=== PATIENT | male | born 1995 | race Caucasian/White ===

== ENCOUNTER 2018-02-06 20:15 | Emergency (ER) | payer OTHER ==
[~2018-02-06] VITALS: Ht 175.3 cm; Wt 88.5 kg
--- NOTE | 2018-02-06 20:57 | ED EENT ---
History of Present Illness General Chief Complaint: Ear Problems Stated Complaint: R EAR PAIN/SWELLING Source: patient Exam Limitations: no limitations History of Present Illness Date Seen by Provider: Feb 06, 2018 Time Seen by Provider: 20:53 Initial Comments Patient is a 22-year-old male who presents to the emergency room with complaints of right ear pain. He reports tonight while at [employer] his ear was swiped another player. He denies an actual blow to his head but is concerned with the swelling of the right ear. There is minimal swelling noted. Timing/Duration: abrupt Prearrival Treatment: no prearrival treatment Associated Symptoms: denies symptoms Allergies and Home Medications Patient Home Medication List Home Medication List Reviewed: Yes Review of Systems Constitutional: see HPI; No chills, No fever Ears: See HPI, Pain (pain to right outter ear. ) All Other Systems Reviewed Negative Unless Noted: Yes Past Xamdihj-Dvmfgd-Vgwdcy Hx Past Med/Social Hx: Reviewed Nursing Past Med/Soc Hx Patient Social History Alcohol Use: Denies Use Recreational Drug Use: No Smoking Status: Never a Smoker Recent Foreign Travel: No Contact w/Someone Who Travel: No Immunizations Up To Date Tetanus Booster (TDap): Unknown PED Vaccines UTD: Yes Family Medical History Reviewed Nursing Family Hx Physical Exam Vital Signs Vital Signs - First Documented 02/06/18 20:32 Temp 98.0 Pulse 80 Resp 20 B/P (MAP) 120/70 (87) Pulse Ox 99 O2 Delivery Room Air Height, Weight, BMI Height: '" Weight: lbs. oz. kg; BMI Method: General Appearance: WD/WN, no apparent distress Eyes: bilateral eye normal inspection, bilateral eye PERRL, bilateral eye EOMI Ears: right ear swelling (minimal swelling to outter ear no ecchymosis noted); bilateral ear canal normal, bilateral ear TM normal Nose: normal inspection Neck: non-tender, full range of motion, supple, normal inspection Cardiovascular: regular rate, rhythm, no edema, no gallop, no JVD, no murmur Respiratory: chest non-tender, lungs clear, normal breath sounds, no respiratory distress, no accessory muscle use Skin: normal color, warm/dry, other Progress/Results/Core Measures Progress Progress Note : Progress Note I have seen and evaluated the patient. He agrees with plan of care, plans for discharge, and return precautions. Departure Impression Primary Impression: Contusion of right ear Disposition: HOME, SELF-CARE Condition: Stable/Unchanged Departure-Patient Inst. Decision time for Depature: 20:55 Referrals: MOOK YANEZ MD Patient Instructions: Contusion (DC) Add. Discharge Instructions: You may use ibuprofen and Tylenol as needed for pain. Use ice to the sore area at 20 minute intervals. Follow-up with [facility] or your primary care provider back in [place] within 1 week for recheck. Return back to the emergency room for any worsening pain, swelling, or any other concerns as needed. All discharge instructions reviewed with patient and/or family. Voiced understanding. TORIBIO ARMAS Feb 06, 2018 20:57
[2018-02-06 21:00] VITALS: BP 120/70
== END 2018-02-06 21:00 | disposition home or self-care (01) ==
LOC: ER 20:16
DX: S00.431A Contusion of right ear, initial encounter (principal); W51.XXXA Accidental striking against or bumped into by another person, initial encounter; Y93.63 Activity, rugby
CPT/HCPCS: 99282